=== PATIENT | male | born 1950 | race Caucasian/White ===

== ENCOUNTER 2017-12-28 10:41 | Day surgery (SDC) | payer MEDICARE, OTHER ==
[~2017-12-28] VITALS: Ht 180.3 cm; Wt 120.6 kg
[~2017-12-28 10:41] MED LIST: ASPIRIN E.C. 8181 MG PO; CARAFATE 1GM1 G PO; CIPRO 500MG TA500 MG PO; COZAAR 50MG50 MG/TAB PO; MEVACOR10 MG PO; NORCO 325 MG-51 TAB PO; PRIL40 PO; PRILOSEC 20MG20 MG PO; PYRIDIUM 100MG100 MG PO; SENOKOT S 50 MG1 TAB PO; ZETIA 10MG TAB10 MG PO
[2017-12-28] MEDS ORDERED: NORVASC 5MG5 MG/TAB PO (11:47)
[2017-12-28] MEDS ORDERED: CULTURELLE KID1 EAC1 PO (11:48)
[2017-12-28] MEDS ORDERED: BENICAR40 MG PO (11:50)
[2017-12-28] MEDS ORDERED: ALEVE 220MG220 MG PO (11:50)
[2017-12-28 12:51] VITALS: BP 152/74; PULSE 61; TEMP 98.1
[2017-12-28 15:20] VITALS: BP 135/79; PULSE 57; TEMP 98.1
[2017-12-28 15:30] VITALS: BP 144/79; PULSE 61; TEMP 98.2
[2017-12-28 15:45] VITALS: BP 144/76; PULSE 58
[2017-12-28 16:00] VITALS: BP 134/75; PULSE 63
[2017-12-28 16:15] VITALS: BP 141/76; PULSE 60; TEMP 98.4
[2017-12-28] MEDS ORDERED: PYRIDIUM 100MG100 MG PO (16:53)
[2017-12-28] MEDS ORDERED: NORCO 325 MG-51 TAB PO (16:54)
== END 2017-12-28 17:40 | disposition home or self-care (01) ==
LOC: SDCO 10:41 → SURG 11:08 → SDCO 17:40
DX: N20.1 Calculus of ureter (principal); Z87.442 Personal history of urinary calculi; I10 Essential (primary) hypertension; E78.00 Pure hypercholesterolemia, unspecified; K21.9 Gastro-esophageal reflux disease without esophagitis; K44.9 Diaphragmatic hernia without obstruction or gangrene; R20.2 Paresthesia of skin; Z85.51 Personal history of malignant neoplasm of bladder; Z79.899 Other long term (current) drug therapy
CPT/HCPCS: OP; C1769; C2617; J0690; J1100; J1885; J2405; J2704; J3010; J7030; Q9967